=== PATIENT | male | born 1985 | race African-American/Black ===

== ENCOUNTER 2016-08-05 10:01 | Emergency (ER) | payer SELFPAY ==
[~2016-08-05] VITALS: Ht 170.2 cm; Wt 70.3 kg
[2016-08-05 10:08] VITALS: BP 123/56
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
--- NOTE | 2016-08-05 10:39 | RAD ---
EXAM: Right hand, 3 views. HISTORY: Pain. COMPARISON: None. FINDINGS: Frontal, lateral and oblique views of the right hand are obtained. There is a minimally displaced fracture along the palmar aspect of the base of the fourth middle phalanx. No additional fracture is seen. There is a tiny ossicle at the base of the fifth metacarpal. IMPRESSION: Minimally displaced fracture along the palmar base of the fourth middle phalanx.
[2016-08-05] MEDS ORDERED: TRAM-29 PO (10:56)
== END 2016-08-05 11:10 | disposition home or self-care (01) ==
LOC: ER 10:01
DX: S62.624A Displaced fracture of middle phalanx of right ring finger, initial encounter for closed fracture (principal); W22.09XA Striking against other stationary object, initial encounter; Y93.89 Activity, other specified; Y92.89 Other specified places as the place of occurrence of the external cause; Y99.8 Other external cause status
CPT/HCPCS: 29130; 73130; 99284-25

== ENCOUNTER 2021-06-16 10:00 | Emergency (ER) | payer SELFPAY ==
[~2021-06-16] VITALS: Ht 165.1 cm; Wt 70.5 kg
[~2021-06-16 10:00] MED LIST: TRAM-48 PO
[2021-06-16 10:07] VITALS: BP 144/95
[2021-06-16] MEDS ORDERED: AMOX1TAB11 PO (10:24)
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
== END 2021-06-16 10:30 | disposition home or self-care (01) ==
LOC: ER 10:00
DX: H66.92 Otitis media, unspecified, left ear (principal)
CPT/HCPCS: 99283